=== PATIENT | female | born 1975 | race Asian ===

== ENCOUNTER 2021-09-13 09:16 | Emergency (ER) | payer SELFPAY ==
[~2021-09-13] VITALS: Ht 165.1 cm; Wt 50.0 kg
[2021-09-13 10:42] LABS: *AMPHETAMINES SCREEN URINE NEGATIVE (NEGATIVE); *BARBITURATES SCREEN URINE NEGATIVE (NEGATIVE); *BENZODIAZEPINES SCREEN URINE NEGATIVE (NEGATIVE); *COCAINE SCREEN URINE NEGATIVE (NEGATIVE); CANNABINOID URINE SCREEN NEGATIVE (NEGATIVE); METHADONE URINE SCREEN NEGATIVE (NEGATIVE); OPIATES URINE SCREEN NEGATIVE (NEGATIVE); PHENCYCLIDINE URINE SCREEN NEGATIVE (NEGATIVE)
[2021-09-13 11:55] LABS: CLARITY URINE CLEAR (CLEAR); COLOR URINE YELLOW (YELLOW); KETONES URINE NEGATIVE (NEGATIVE); LEUKOCYTE ESTERASE URINE NEGATIVE (NEGATIVE); NITRITE URINE NEGATIVE (NEGATIVE); OCCULT BLOOD URINE NEGATIVE (NEGATIVE); PROTEIN URINE NEGATIVE (NEGATIVE); SPECIFIC GRAVITY URINE 1.008 (1.005-1.030); UROBILINOGEN URINE 0.2 E.U./dL (0.2-1.0)
[2021-09-13 11:59] LABS: BASOPHILS % 1.4 % (0.0-2.0); EOSINOPHILS % 1.2 % (0.0-5.0); LYMPHOCYTES % 24.3 % (20.0-50.0); MEAN CORPUSCULAR HEMOGLOBIN 30.1 pg (28.0-32.0); MEAN CORPUSCULAR VOLUME 90.3 fL (81.0-99.0); MEAN PLATELET VOLUME 8.3 fl (7.4-10.4); MONOCYTES % 8.3 % (2.0-8.0); NEUTROPHILS % 64.8 % (40.0-76.0); PLATELET 258 x1000/uL (130-400); RED BLOOD CELL COUNT 4.32 mill/uL (4.2-5.4); RED CELL DISTRIBUTION WIDTH 12.6 % (11.6-14.6)
[2021-09-13 12:04] LABS: CHLORIDE 106 mEq/L (98-107)
[2021-09-13 12:13] LABS: ETHANOL BLOOD < 10 mg/dL
[2021-09-13] MEDS ORDERED: ACETAMINOPHEN 325MG TABLET PO ONE (12:15)
[2021-09-13] MEDS ORDERED: LORAZEPAM 1MG TABLET PO ONE ×2 (12:15→15:45)
[2021-09-13 12:44] LABS: HCG SCREEN NEGATIVE
[2021-09-13 16:00] VITALS: BP 176/87
== END 2021-09-13 21:10 | disposition home or self-care (01) ==
LOC: ER 09:16
DX: F23 Brief psychotic disorder (principal); R45.851 Suicidal ideations; R45.1 Restlessness and agitation
CPT/HCPCS: 36415; 80053; 80305; 80307; 80320; 80329; 81003; 81025; 84703; 85025; 99284; G0480